=== PATIENT | female | born 1980 ===

== ENCOUNTER 2025-04-15 21:46 | Emergency (ER) | payer SELFPAY ==
[2025-04-15 21:49] VITALS: BP 120/70; PULSE 94; PULSE 95; RESP 18; TEMP 36.9; O2SAT 96; O2SAT 97; BMI 23.0
--- NOTE | 2025-04-15 23:13 | PC.NURSE ---
NO ANSWER AT ER LOBBY OR OUTSIDE ER TO BE SEEN.
--- NOTE | 2025-04-15 23:19 | PC.NURSE ---
NO ANSWER AT ER LOBBY OR OUTSIDE ER TO DO V/S.
--- NOTE | 2025-04-15 23:25 | PC.NURSE ---
NO ANSWER AT ER LOBBY OR OUTSIDE ER TO BE V/S.
== END 2025-04-15 23:26 | disposition left against medical advice (07) ==
LOC: SERX 23:30
PROVIDERS: Emergency Provider Emergency Medicine
DX: Z53.21 Procedure and treatment not carried out due to patient leaving prior to being seen by health care provider (principal)
CPT/HCPCS: 99281